=== PATIENT | male | born 1980 | race Two or more races ===

== ENCOUNTER 2021-11-22 23:03 | Emergency (ER) | payer OTHER ==
[2021-11-22] MEDS ORDERED: Ketorolac 10 MG Tab PO ONE (23:16)
== END 2021-11-22 23:55 | disposition home or self-care (01) ==
LOC: LL.ED 23:03
DX: S67.192A Crushing injury of right middle finger, initial encounter (principal); W22.8XXA Striking against or struck by other objects, initial encounter
CPT/HCPCS: 73130; 99283; A9270